=== PATIENT | male | born 1985 | race Caucasian/White ===

== ENCOUNTER 2016-11-07 23:32 | Emergency (ER) | payer SELFPAY ==
[2016-11-07 23:41] VITALS: BP 139/74
[2016-11-07] MEDS ORDERED: TETRACAINE HCL 150 DROP BTL LEFTEYE ONE (23:47)
[2016-11-07] MEDS ORDERED: TETRACAINE HCL 150 DROP BTL ONE (23:49)
[2016-11-07] MEDS ORDERED: ERYTHROMYCIN BASE 3.5 APPL TUBE LEFTEYE ONE (23:57)
[2016-11-07] MEDS ORDERED: HYDROcodone/ACETAMINOPHEN 1 EACH TABLET PO ONE (23:57)
--- NOTE | 2016-11-07 23:59 | ERNOTE ---
ENT HPI Time Seen by Provider: 11/07/16 23:40 Source: patient Exam Limitations: no limitations - Immun/Allergies/Home Medications Immunizations: IMMUNIZATION HX Immunizations Up to Date Yes History of Influenza Vaccine No Allergies/Adverse Reactions: Allergies Allergy/AdvReac Type Severity Reaction Status Date / Time No Known Allergies Allergy Verified 04/26/15 11:48 Home Medications: HOME MEDICATIONS Atenolol [Tenormin] 50 mg PO DAILY 04/22/15 [Last Taken Unknown] Benazepril HCl [Lotensin] 10 mg PO DAILY 04/22/15 [Last Taken Unknown] - History of Present Illness Narrative: feels as if left eye is irritated as he slept with his contacts in Review of Systems - Review of Systems Constitutional: Present: no symptoms reported EYE: Present: see HPI ENT: Present: no symptoms reported Respiratory: Present: no symptoms reported Cardiology: Present: no symptoms reported Gastrointestinal/Abdominal: Present: no symptoms reported Genitourinary: Present: no symptoms reported Musculoskeletal: Present: no symptoms reported Skin: Present: no symptoms reported - Patient's Past Medical History Patient History - Medical: No pertinent hx Patient History - Cardiac/Respiratory: Hypertension Patient History - Cancer: No Hx of Cancer Patient History - Surgical Procedures: No surgical history Patient History - Other: None - Social History Living Situations: alone Psych History: No pertinent hx Smoking Status: Current every day smoker Have you smoked in the past 12 months: Yes Do you dip or chew tobacco: No Alcohol Use: occasionally Drug Use: none - Immunizations Immunizations Up to Date: Yes History of Influenza Vaccine: No Physical Exam - Physical Exam General Appearance: Present: wd/wn, alert Eye Exam: Other: left - There is conjunctival injection but acuity is not affected. No FB is noted ED Progress - Vital Signs Patient's Vital Signs:: I have reviewed the patient's vital signs. Vital Signs: Vital Signs 11/07/16 23:36 Temperature 36.2 C L Pulse Rate 74 Respiratory 16 Rate Blood Pressure 139/74 O2 Sat by Pulse 97 Oximetry - Progress/Reassessment Chief Complaint: Eye Injury/Trauma Plan - Plan Plan: pt has conjunctivitis and will be treated Departure Clinical Impression: Conjunctivitis, left eye Qualifiers: Conjunctivitis type: unspecified Qualified Code(s): H10.9 - Unspecified conjunctivitis - Departure Disposition: Home self-care Condition: Good Instructions: Contact Precautions, [id number] Additional Instructions: place antibiotic ointment in left eye TID and apply eyepatch, follow up with PCP in 24 hours Referrals: Nicole Farley MD [Primary Care Provider] -
[2016-11-08] MEDS ORDERED: ERYTHROMYCIN BASE 3.5 APPL TUBE ONE (00:01)
[2016-11-08] MEDS ORDERED: HYDROcodone/ACETAMINOPHEN 1 EACH TABLET ONE (00:02)
== END 2016-11-08 00:06 | disposition home or self-care (01) ==
LOC: ER 23:32
DX: H10.9 Unspecified conjunctivitis (principal); I10 Essential (primary) hypertension; Z72.0 Tobacco use